=== PATIENT | male | born 1955 | race Caucasian/White ===

== ENCOUNTER 2021-11-14 14:11 | Day surgery (SDC) | payer BC ==
[~2021-11-14] VITALS: Ht 175.3 cm; Wt 94.6 kg
[~2021-11-14 14:11] MED LIST: ACEASPCAF; EPIN.3I IM; IBUP400; LEVO750 PO; LISHYD1012 PO; OXYACE7.5T PO; PRED20 PO; SIMV5 PO
[2021-11-14] MEDS ORDERED: TAMS.4ER PO (15:00)
[2021-11-14] MEDS ORDERED: METF500 (15:00)
[2021-11-14] MEDS ORDERED: IBUP200 (15:00)
[2021-11-14] MEDS ORDERED: ZOLP10 PO (15:01)
[2021-11-14] MEDS ORDERED: TRAM50 (15:01)
== END 2021-11-14 16:43 | disposition home or self-care (01) ==
LOC: ORSCSDS 14:11
PROVIDERS: Anesthesiology
PROC: 3E0R33Z Introduction of Anti-inflammatory into Spinal Canal, Percutaneous Approach (ICD-10-PCS; principal; 2021-11-14 15:15)
DX: M54.16 Radiculopathy, lumbar region (principal); E11.9 Type 2 diabetes mellitus without complications; I10 Essential (primary) hypertension; Z79.84 Long term (current) use of oral hypoglycemic drugs; Z79.899 Other long term (current) drug therapy
CPT/HCPCS: J1040